=== PATIENT | female | born 1960 | race Caucasian/White ===

== ENCOUNTER 2016-10-22 21:37 | Emergency (ER) | payer OTHER ==
[~2016-10-22] VITALS: Ht 157.5 cm; Wt 79.4 kg
--- NOTE | 2016-10-22 21:39 | NUR ---
BIBA TO ER BED 7
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
--- NOTE | 2016-10-22 21:50 | NUR ---
PT LEFT TO CT
[2016-10-22 21:51] VITALS: BP 137/62
--- NOTE | 2016-10-22 22:21 | NUR ---
Patient being evaluated by physician DR NOWAK at bedside.
[2016-10-22] MEDS ORDERED: KETOROLAC 60 MG/2 ML VIAL IM ONE (22:25)
[2016-10-22 22:57] VITALS: BP 127/68
--- NOTE | 2016-10-22 22:57 | NUR ---
Patient discharged with v/s stable. Written and verbal after care instructions given and explained. Patient alert, oriented and verbalized understanding of instructions. Ambulatory with steady gait. All questions addressed prior to discharge. ID band removed. Patient advised to follow up with PMD. Rx of Motrin and Tramadol given. Patient educated on indication of medication including possible reaction and side effects. Opportunity to ask questions provided and answered.
== END 2016-10-22 22:57 | disposition home or self-care (01) ==
LOC: MED 21:37
DX: S16.1XXA Strain of muscle, fascia and tendon at neck level, initial encounter (principal); R51 Headache; V89.2XXA Person injured in unspecified motor-vehicle accident, traffic, initial encounter; Y93.89 Activity, other specified; Y92.488 Other paved roadways as the place of occurrence of the external cause; Y99.8 Other external cause status
CPT/HCPCS: 70450; 72125; 96372; 99284; J1885